=== PATIENT | female | born 1965 | race Caucasian/White ===

== ENCOUNTER 2016-12-06 19:03 | Emergency (ER) | payer OTHER ==
[~2016-12-06] VITALS: Ht 170.2 cm; Wt 113.5 kg
[2016-12-06 19:04] VITALS: BP 167/86; PULSE 89; RESP 18; TEMP 97.9; O2SAT 97
--- NOTE | 2016-12-06 19:22 | PD ---
HPI Chief Complaint: Injury Time Seen by Provider: 19:22 Travel History International Travel<30 days: No Contact w/Intl Traveler<30days: No Traveled to known affect area: No History of Present Illness HPI 51-year-old female who is visiting from [place] presents to the emergency room for evaluation right ankle injury. Patient states that she attempted to jump over the [place] and misstepped, rolling over her right ankle. Experienced immediate pain. Patient believes she has broken her ankle. Pain is a 10 out of 10, constant, throbbing. No other symptoms to report. PFSH Past Medical History Asthma: Yes Diminished Hearing: No Hypertension: Yes Immunizations Current: Yes Tetanus Vaccination: > 5 Years ?: Not Social History Alcohol Use: Yes (OCC) Tobacco Use: No Substance Use: No Allergies-Medications (Allergen,Severity, Reaction): Coded Allergies: No Known Allergies (Unverified , 12/06/16) Reported Meds & Prescriptions Reported Meds & Active Scripts Active Ibuprofen 800 Mg Tab 800 Mg PO Q8H PRN Review of Systems Except as stated in HPI: all other systems reviewed are Neg Physical Exam Narrative GENERAL: Well-nourished, well-developed female patient in no acute distress SKIN: Warm and dry. HEAD: Normocephalic. EYES: No scleral icterus. No injection or drainage. NECK: Supple, trachea midline. No JVD or lymphadenopathy. CARDIOVASCULAR: Regular rate and rhythm without murmurs, gallops, or rubs. RESPIRATORY: Breath sounds equal bilaterally. No accessory muscle use. EXTREMITY: The right ankle is very tender and moderately swollen, especially over the lateral aspect. The range of motion is limited because of the pain and swelling. No deformity. NEUROVASCULAR: Sensation intact to pain and light touch, foot is warm and well- perfused, dorsalis pedis pulse is palpable. Data Data Last Documented VS Vital Signs Date Time Temp Pulse Resp B/P Pulse Ox O2 Delivery O2 Flow Rate FiO2 12/06/16 19:04 97.9 89 18 167/86 97 Room Air Orders Ankle, Complete ([id number]) (12/06/16 ) Foot, Complete ([id number]) (12/06/16 ) Ketorolac Inj (Toradol Inj) (12/06/16 19:45) Splint Or Brace Apply/Monitor (12/06/16 19:56) Fiberglass Short Leg Splint Ad (12/06/16 ) Fiberglass Sugartong Sp Ad Sl (12/06/16 ) MDM Medical Decision Making Medical Screen Exam Complete: Yes Emergency Medical Condition: Yes Medical Record Reviewed: Yes Differential Diagnosis Fracture versus sprain versus dislocation versus contusion Narrative Course 51 year-old female presents to emergency department for evaluation. Patient appears without distress. X-ray imaging of the right ankle shows an avulsion fracture of the lateral malleolus as well as an old avulsion fracture of the same area. Patient is placed in a splint, counseled on care, she agrees to return immediately with any acute worsening of symptoms. Prior to arrival, the patient took Percocet which she has prescribed to her. I' ll give her Toradol here in the emergency department for pain control. Diagnosis Primary Impression: Avulsion fracture of ankle Qualified Code: S82.891A - Avulsion fracture of ankle, right, closed, initial encounter Referrals: Orthopaedic Surgeon Primary Care Physician Patient Instructions: Ankle Fracture (ED), General Instructions Additional Instructions: Ice and elevate to reduce pain and swelling Do not remove your splints Do not get it wet Follow-up with an math specialist Return immediately to the emergency department with any acute worsening of symptoms Med/Other Pt SpecificInfo: Prescription(s) given Scripts Ibuprofen 800 Mg [id number] Mg PO Q8H PRN (Pain/Inflammation) #30 TAB Ref 0 Prov:Fely Almaraz 12/06/16 Disposition: 01 DISCHARGE HOME Condition: Stable Fely Almaraz Dec 06, 2016 19:22
[2016-12-06] MEDS ORDERED: KETOROLAC TROMETHAMINE 60 MG/2 ML (IM) VIAL IM ONE (19:45)
--- NOTE | 2016-12-06 19:52 | RADRPT ---
EXAM DATE/TIME: 12/06/2016 19:44 [facility] COMPARISON: No previous studies available for comparison. INDICATIONS : Pain from fall in mud. MEDICAL HISTORY : Prior break x 3. SURGICAL HISTORY : None. ENCOUNTER: Initial ACUITY: 1 day PAIN SCORE: 7/10 LOCATION: Right ankle. FINDINGS: Three view exam was performed of the right ankle. Avulsion fracture distal tip lateral malleolus. Ol d old avulsion fracture medial malleolus. Ankle mortise intact. Plantar calcaneal spur. CONCLUSION: Avulsion fracture lateral malleolus. Old avulsion fracture medial malleolus. Jayson Gibson MD on December 06, 2016 at 19:49 Board Certified Radiologist. This report was verified electronically.
--- NOTE | 2016-12-06 19:52 | RADRPT ---
EXAM DATE/TIME: 12/06/2016 19:47 [facility] COMPARISON: No previous studies available for comparison. INDICATIONS : Pain from fall in mud. MEDICAL HISTORY : Prior break x 3. SURGICAL HISTORY : None. ENCOUNTER: Initial ACUITY: 1 day PAIN SCORE: 7/10 LOCATION: Right foot. FINDINGS: Three view examination of the right foot demonstrates no soft tissue swelling, dislocation, or fractu re. The tarsal bones appear intact. The interphalangeal and metatarsophalangeal joints are intact. The calcaneus is intact. Bony mineralization is normal. CONCLUSION: No acute fracture. Jayson Gibson MD on December 06, 2016 at 19:50 Board Certified Radiologist. This report was verified electronically.
[2016-12-06] MEDS ORDERED: IBUP800T23 PO (19:58)
== END 2016-12-06 21:04 | disposition home or self-care (01) ==
LOC: NEPB 19:03
DX: S82.891A Other fracture of right lower leg, initial encounter for closed fracture (principal); I10 Essential (primary) hypertension; Y93.9 Activity, unspecified; Y92.9 Unspecified place or not applicable; Y99.9 Unspecified external cause status; X58.XXXA Exposure to other specified factors, initial encounter
CPT/HCPCS: 29515; 73610; 73630; 96372; 99283; E0113; J1885